=== PATIENT | male | born 1990 | race Two or more races ===

== ENCOUNTER 2021-03-07 11:20 | Emergency (ER) | payer OTHER ==
[~2021-03-07] VITALS: Ht 172.7 cm; Wt 90.7 kg
--- NOTE | 2021-03-07 11:25 | NUR ---
PATIENT BIB RA C/O OVERDOSE ON FENTANYL, NARCAN 4MG GIVEN IN FIELD. PATIENT IS ALERT AND ORIENTED X4. DENIES ANY PAIN OR DISCOMFORT. RESPIRATIONS EVEN AND UNLABORED. AWAITING MD REID.
[2021-03-07] MEDS ORDERED: NALO4SPR NS (11:51)
--- NOTE | 2021-03-07 12:18 | NUR ---
Patient discharged to home in stable condition. Written and verbal after care instructions given. Patient verbalizes understanding of instruction.
[2021-03-07 12:23] VITALS: BP 126/75
== END 2021-03-07 12:24 | disposition home or self-care (01) ==
LOC: ER 11:37
DX: T40.411A Poisoning by fentanyl or fentanyl analogs, accidental (unintentional), initial encounter (principal); Y92.89 Other specified places as the place of occurrence of the external cause

== ENCOUNTER 2021-12-16 23:14 | Emergency (ER) | payer OTHER ==
[~2021-12-16] VITALS: Ht 172.7 cm; Wt 83.0 kg
[~2021-12-16 23:14] MED LIST: NALO4SPR NS
--- NOTE | 2021-12-16 23:22 | NUR ---
BIBLUCILA AND RA. PT WAS WALKING AROUND STATION 102 SCREAMING +POSSIBLE METH USE. PT A/OX3 TOLERATING R/A WELL WITH NO SOB. CONNECTED PT TO POX AND MONITOR. PT WEARING GOWN, & BELONGINGS PLACED IN STORGE. PT WANDED BY SECURITY. SAFETY MEASURES IN PLACE.
[2021-12-16 23:47] LABS: BASOPHILS % (AUTO) 0.2 % (0.0-2.0); HEMATOCRIT 39 % (39-51); HEMOGLOBIN 13.2 g/dL (13.5-17.5); LYMPHOCYTES # (AUTO) 1.3 K/uL (0.8-4.8); LYMPHOCYTES % (AUTO) 8.6 % (20.0-44.0); MEAN CORPUSCULAR HGB CONC 34 g/dl (31.0-36.0); MEAN CORPUSCULAR VOLUME 84 fL (80-96); MONOCYTES # (AUTO) 1.4 K/uL (0.1-1.30); MONOCYTES % (AUTO) 9.1 % (2.0-12.0); NEUTROPHILS # (AUTO) 12.3 K/uL (1.8-8.9); NEUTROPHILS % (AUTO) 82.1 % (43.0-81.0); PLATELET COUNT (AUTO) 295 K/uL (150-450); RED BLOOD CELL COUNT(AUTO) 4.62 MIL/uL (4.5-6.0); WHITE BLOOD COUNT (AUTO) 14.9 K/uL (4.3-11.0)
[2021-12-17 00:06] LABS: CALCIUM, SERUM 8.7 mg/dL (8.5-10.1); CARBON DIOXIDE 25 mmol/L (21-32); CHLORIDE 104 mmol/L (98-107); CREATININE 1.1 mg/dL (0.6-1.3); GLUCOSE 93 mg/dL (74-106); SODIUM SERUM 142 mmol/L (136-145); UREA NITROGEN, BLOOD 23 mg/dL (7-18)
--- NOTE | 2021-12-17 00:08 | NUR ---
URINE COLLECTED AND SENT TO LAB
[2021-12-17 00:09] LABS: ALCOHOL, BLOOD < 3 mg/dL (0-0)
[2021-12-17 00:32] LABS: BILIRUBIN,URINE MODERATE (NEGATIVE); COLOR,URINE YELLOW (YELLOW); LEUKOCYTE ESTERASE ,URINE NEGATIVE (NEGATIVE); NITRITE, URINE NEGATIVE (NEGATIVE); PROTEIN,URINE 100 mg/dl (NEGATIVE); UGLUCOSE NEGATIVE (NEGATIVE)
[2021-12-17] MEDS ORDERED: POTASSIUM CHLORIDE 20 MEQ TAB.PRT.SR PO ONE (01:02)
[2021-12-17] MEDS: POTASSIUM CHLORIDE 20 MEQ TAB.PRT.SR PO ONE (01:07)
--- NOTE | 2021-12-17 02:25 | NUR ---
PT TAKEN TO RESTROOM VIA W/C. ADLS DONE
--- NOTE | 2021-12-17 05:33 | NUR ---
PT PROVIDED WITH FOOD AND DRINK
[2021-12-17] MEDS ORDERED: SULF1TAB48 PO (08:06)
[2021-12-17] MEDS ORDERED: CEPH500C2 PO (08:06)
--- NOTE | 2021-12-17 08:11 | NUR ---
Patient discharged to home in stable condition. Written and verbal after care instructions given. Patient verbalizes understanding of instruction.
[2021-12-17 08:12] VITALS: BP 154/82
== END 2021-12-17 08:12 | disposition home or self-care (01) ==
LOC: ER 23:16
DX: F15.10 Other stimulant abuse, uncomplicated (principal); Z79.899 Other long term (current) drug therapy
CPT/HCPCS: 36415; 80048-TC; 85025-TC; G0480